=== PATIENT | male | born 1950 | race Caucasian/White ===

== ENCOUNTER → 2021-07-15 10:29 | Outpatient (CLI) | payer MEDICARE, OTHER, SELFPAY | PROVIDERS: PCP Family Medicine; Visit Provider Nurse Practitioner | DX: Z20.822 Contact with and (suspected) exposure to COVID-19 (principal); U07.1 COVID-19 | CPT/HCPCS: C9803; U0003; U0005 ==

== ENCOUNTER 2021-07-20 13:55 | Inpatient (IN) | payer MEDICARE, OTHER, SELFPAY ==
[2021-07-20] VITALS (8 sets, daily range): BP systolic 99–195; BP diastolic 62–114; PULSE 71–78; RESP 20; TEMP 36.4; O2SAT 90–94; BMI 33.3
--- NOTE | 2021-07-20 14:29 | XR_ITS ---
PROCEDURE: XR CHEST PORTABLE CLINICAL HISTORY: covid positive, increased SOA COMPARISON: No exams were available for comparison FINDINGS: The cardiomediastinal silhouette and pulmonary vascularity are within normal limits. The lungs are clear without infiltrates, suspicious nodules, or pleural effusions. No acute bony abnormalities. IMPRESSION: No acute findings. Dictated by: Stew Severino MD 07/20/2021 15:02 Stew Severino MD in [facility] 07/20/2021 15:02
[2021-07-20 14:44] LABS: Chloride 100 mmol/L (98-107); Potassium 4.6 mmoL/L (3.5-5.1); Sodium 139 mmol/L (136-145)
[2021-07-20 14:45] LABS: Basophils # 0.3 K/mm3 (0-0.2); Basophils % 4.4 % (0.1-2.0); Eosinophils % 0.2 % (0.1-12.0); Lymphocytes # 1.4 K/mm3 (0.7-4.5); Lymphocytes % 21.9 % (10-50); Mean Corpuscular Hemoglobin 30.2 pg (27.0-31.2); Mean Corpuscular Volume 91.6 fl (80-94); Mean Platelet Volume 9.9 fl (7.4-10.4); Monocytes # 0.9 K/mm3 (0.1-1.0); Monocytes % 13.8 % (1.7-9.3); Neutrophils % 64.1 % (37.0-80.0); Platelet Count 177 K/mm3 (142-424); Red Cell Distribution Width 14.9 % (11.5-17.5); White Blood Count 6.3 K/mm3 (4.8-10.8)
[2021-07-20 14:47] LABS: Alanine Aminotransferase 94 U/L (12-78); Albumin Level 4.1 g/dl (3.5-5.0); Albumin/Globulin Ratio 1.2 (1.1-1.8); Alkaline Phosphatase 126 U/L (38-126); Anion Gap 19.6 mEq/L (5-15); Aspartate Amino Transferase 76 U/L (17-59); Blood Urea Nitrogen 52 mg/dl (9-20); Carbon Dioxide 24 mmol/L (22.0-30.0); Creatinine Clearance Estimated 58 mL/min (50-200); Estimated Glomerular Filt Rate 35 ml/min (>60); GFR (African American) 42 ML/MIN (>60); Globulin 3.4 g/dL (1.3-3.2); Glucose 158 mg/dl (74-100); Total Protein,Serum 7.5 g/dl (6.3-8.2)
--- NOTE | 2021-07-20 14:49 | PC.NURSE ---
critical results called, aware, wants redraw at this time
[2021-07-20 14:51] LABS: Hematocrit 61.4 % (42.0-52.0)
[2021-07-20 14:59] LABS: Troponin I 0.04 ng/ml (0.00-0.034)
--- NOTE | 2021-07-20 15:22 | HMH.EDGENADL ---
ED Disposition Clinical Impression: COVID-19, KYM (acute kidney injury), Acute respiratory failure with hypoxia, NSTEMI (non-ST elevated myocardial infarction) Disposition: Admitted as Observation Condition on Discharge: Good Time of Disposition: 18:01 - Critical Care Critical Care Time: No Attestation: On 07/20/21, the high probability of a clinically significant, sudden or life threatening deterioration of the following system(s) required my full and direct attention, intervention and personal management. The time I documented below is in addition to time spent performing reported procedures but includes the following listed in this critical care notation. Medical Decision Making - Medical Records Medical records reviewed: Yes: I reviewed the patient's medical records. - Reese Inquiry Pt receiving controlled substance: No Vital Signs: 07/20/21 13:55 07/20/21 15:30 Temperature 97.6 F Temperature Source Oral Pulse Rate 78 Pulse Rate [Right Radial] 74 Respiratory Rate 20 Blood Pressure 137/114 H Blood Pressure [Left Arm] 99/68 L Blood Pressure Mean 121 Blood Pressure Mean [Left Arm] 78 Blood Pressure Source [Left Arm] Automatic Cuff Blood Pressure Position [Left Arm] Sitting 02 Sat by Pulse Oximetry 90 L 91 L Oxygen Delivery Method Room Air - Lab Data Lab results reviewed: Yes: I reviewed the patient's lab results. Lab Results 07/20/21 14:18: WBC 6.3, RBC 6.70 H, Hgb 19.9 H, Hct 61.4 H*, MCV 91.6, MCH 30.2, MCHC 33.0, RDW 14.9, Plt Count 177, MPV 9.9, Neut % (Auto) 64.1, Lymph % (Auto) 21.9, [place] % (Auto) 13.8 H, Eos % (Auto) 0.2, Baso % (Auto) 4.4 H, Neut # (Auto) 4.0, Lymph # (Auto) 1.4, [place] # (Auto) 0.9, Eos # (Auto) 0.0, Baso # (Auto) 0.3 H 07/20/21 15:03: Sodium 139, Potassium 4.6, Chloride 100, Carbon Dioxide 24, Anion Gap 19.6 H, BUN 52 H, Creatinine 1.90 H, Estimated Creat Clear 58, Estimated GFR 35 L, Est GFR ( Amer) 42 L, Glucose 158 H, Calcium 9.0, Total Bilirubin 1.0, AST 76 H, ALT 94 H, Alkaline Phosphatase 126, Troponin I 0.04 H, Total Protein 7.5, Albumin 4.1, Globulin 3.4 H, Albumin/Globulin Ratio 1.2 07/20/21 16:05: Hgb 19.0 H, Hct 57.3 H Result diagrams: 07/20/21 16:05 07/20/21 15:03 Orders (Tests/Meds): ED MEDICATIONS Discontinued Medications Generic Name Dose Route Start Last Admin Trade Name Freq PRN Reason Stop Dose Admin Sodium Chloride 1,000 mls @ 999 mls/hr 07/20/21 15:15 07/20/21 15:27 Sod Chlor 0.9% 1000ml Bag IV 07/20/21 16:15 999 mls/hr .Q1H1M MOMO Administration ORDERS Category Date Time Status Troponin I Q3H Lab 07/20/21 17:25 Received Troponin I Q3H Lab 07/20/21 20:30 Ordered - Radiology Data #1 Image(s): Chest Image Reviewed: Yes I reviewed the patient's radiology results Preliminary Findings: Normal/NAD - ECG Data Tracing #1 I reviewed this ECG and interpreted as documented below: Normal sinus rhythm, 79 bpm, no ST elevation or depression, QT 412. No ectopy. ECG initial impression date: 07/20/21 ECG initial impression time: 16:17 Medical Decision Narrative: 71yo M with known Covid positive status evaluated emergency department secondary to malaise and not feeling well. On initial evaluation the patient is mildly hypoxic and now requiring 2 L nasal cannula. Patient's physical exam is otherwise unremarkable. EKG is benign as reviewed above. Chest x-ray shows no acute findings. Laboratory studies reveal a creatinine of 1.9 with no previous for comparison. Patient also has a troponin of 0.04. Repeat troponin is 0.03. Patient received a liter of IV fluids. Case discussed with Dr. Oviedo who agrees to admit the patient for further observation. General Adult HPI - General Chief complaint: Shortness of Breath/Dyspnea Stated complaint: covid positive, soa Time Seen by Provider: 07/20/21 15:22 Mode of Arrival: Wheelchair Limitations: No Limitations Description of Symptoms (Recalled from ER Triage
[2021-07-20 15:42] LABS: Hemoglobin 19.9 g/dL (14.1-18.0)
--- NOTE | 2021-07-20 16:17 | ECG_ITS ---
APPROVED REPORT Exam: Resting ECG HR:79 bpm ECG Measurements Heart Rate 79 AXES ND 174 P 57 QRSd 94 QRS -43 QT 412 T 74 QTc 472 Conclusion Normal sinus rhythm Left axis deviation Prolonged QT Abnormal ECG Electronically signed by : John Sarah MD 07/21/2021 17:35:11
[2021-07-20 16:35] LABS: Hematocrit 57.3 % (42.0-52.0)
--- NOTE | 2021-07-20 17:39 | PC.NURSE ---
speaking to Dr Oviedo
--- NOTE | 2021-07-20 17:47 | PC.NURSE ---
Speaking to MD about admission
[2021-07-20 17:58] LABS: Troponin I 0.03 ng/ml (0.00-0.034)
[2021-07-20 19:20] LABS: C-Reactive Protein 46.2 mg/L (0-4)
[2021-07-20 19:52] LABS: Ferritin 220 ng/ml (17.9-464)
--- NOTE | 2021-07-20 20:36 | PC.NURSE ---
report called to maryse bowman on second floor at this time.
--- NOTE | 2021-07-20 20:36 | PC.NURSE ---
tower loader operator paging dr. mcknight or manufacturing operations manager doctor
--- NOTE | 2021-07-20 20:39 | PC.NURSE ---
JOHN TOPETE speaking with Dr. Jerry who is cushion worker for Dr. Nava
--- NOTE | 2021-07-20 20:44 | PC.NURSE ---
PT ARRIVED TO FLOOR VIA W/C FROM ED W/STAFF AT 2044
[2021-07-20 20:54] LABS: Troponin I 0.03 ng/ml (0.00-0.034)
[2021-07-21 00:01] VITALS: BMI 32.3
[2021-07-21 02:12] VITALS: PULSE 80
[2021-07-21 04:00] VITALS: BP 147/69; PULSE 70; PULSE 74; RESP 28; TEMP 36.6; O2SAT 92
--- NOTE | 2021-07-21 04:00 | PC.NURSE ---
Pt is A/O x4. Pt has been very pleasant this shift. Pt is wearing 2L NC with O2 stats >90%. Pt reports to feel SOA when ambulating in his room to the bathroom. Pt has a 20G in the right wrist with LR infusing at 125ml/hr. VSS, call light within reach.
[2021-07-21 05:51] VITALS: BMI 32.3
[2021-07-21 07:08] LABS: Basophils # 0.1 K/mm3 (0-0.2); Basophils % 1.1 % (0.1-2.0); Eosinophils % 0.5 % (0.1-12.0); Hematocrit 55.8 % (42.0-52.0); Lymphocytes # 1.4 K/mm3 (0.7-4.5); Lymphocytes % 19.7 % (10-50); Mean Corpuscular HGB Conc 32.6 g/dL (31.8-35.4); Mean Corpuscular Hemoglobin 29.7 pg (27.0-31.2); Mean Corpuscular Volume 91.1 fl (80-94); Mean Platelet Volume 9.6 fl (7.4-10.4); Monocytes # 0.7 K/mm3 (0.1-1.0); Monocytes % 10.1 % (1.7-9.3); Neutrophils % 68.6 % (37.0-80.0); Platelet Count 146 K/mm3 (142-424); Red Blood Count 6.12 M/mm3 (4.60-6.20); Red Cell Distribution Width 14.7 % (11.5-17.5); White Blood Count 7.3 K/mm3 (4.8-10.8)
[2021-07-21 07:14] LABS: Alanine Aminotransferase 67 U/L (12-78); Albumin Level 3.5 g/dl (3.5-5.0); Albumin/Globulin Ratio 1.1 (1.1-1.8); Alkaline Phosphatase 103 U/L (38-126); Anion Gap 14.5 mEq/L (5-15); Aspartate Amino Transferase 59 U/L (17-59); Bilirubin,Total 0.8 mg/dl (0.2-1.3); Blood Urea Nitrogen 50 mg/dl (9-20); Calcium 8.1 mg/dl (8.4-10.2); Carbon Dioxide 23 mmol/L (22.0-30.0); Chloride 104 mmol/L (98-107); Creatinine Clearance Estimated 71 mL/min (50-200); Estimated Glomerular Filt Rate 46 ml/min (>60); GFR (African American) 56 ML/MIN (>60); Globulin 3.1 g/dL (1.3-3.2); Glucose 89 mg/dl (74-100); Potassium 4.5 mmoL/L (3.5-5.1); Sodium 137 mmol/L (136-145); Total Protein,Serum 6.6 g/dl (6.3-8.2)
[2021-07-21 07:26] LABS: Hemoglobin 18.2 g/dL (14.1-18.0)
--- NOTE | 2021-07-21 07:55 | HMH.PHAINT ---
VERIFIED HOME MEDICATION LIST USING LIST FROM [facility]
[2021-07-21 08:00] VITALS: BP 117/73; PULSE 60; PULSE 78; RESP 19; TEMP 36.9; O2SAT 92
--- NOTE | 2021-07-21 08:03 | HMH.PHAVTE ---
[facility] Pharmacy VTE Monitoring - Patient Demographics Admission date: 07/20/21 Report Date: 07/21/21 Time: 08:03 Allergies/Adverse Reactions: Patient Allergies No Known Allergies Allergy (Verified 02/10/19 11:26) Height: 1.88 m Weight: 114.39 kg Patient Problems: Current Active Problems COVID-19 (Acute) KYM (acute kidney injury) (Acute) Acute respiratory failure with hypoxia (Acute) NSTEMI (non-ST elevated myocardial infarction) (Acute) - VTE Risk Labs: VTE Related Lab Results Hgb 18.2 g/dL (14.1-18.0) H 07/21/21 06:18 Hct 55.8 % (42.0-52.0) H 07/21/21 06:18 Plt Count 146 K/mm3 (142-424) 07/21/21 06:18 BUN 50 mg/dl (9-20) H 07/21/21 06:18 Creatinine 1.50 mg/dl (0.66-1.25) H D 07/21/21 06:18 Estimated Creat Clear 71 mL/min (50-200) 07/21/21 06:18 Was VTE Risk Assessment Performed: Yes VTE Score: 2 VTE Risk Level: Very Low Risk - Prophylaxis VTE Prophylaxis Ordered?: Yes Types of VTE Prophylaxis: IPCS Thigh High, Pharmacological Location of Applied Device: Bilateral Lower Extremeties Pharmacologic Type: Heparin
--- NOTE | 2021-07-21 08:16 | CA_ITS ---
APPROVED REPORT EXAM: Comprehensive 2D, Doppler, and color-flow Echocardiogram Stem Shaper: Yolis Jacobo RT(R) Ht: 6 ft 2 in Wt: 252lbs BSA: 2.40 BP: 137/114 mmHg Indications: COVID, NSTEMI, GERD, smoker, HTN, DM, SOB, hyperlipidemia, elevated troponins 2D Dimensions LVOT 2.09 cm (M/F) 1.5-2.5 M-Mode Dimensions RVDd 3.13 cm (0.9-2.6) LA Diam 3.20 cm (1.9-4.0) LVDd 5.09 cm (3.5-5.7) Ao Diam 2.45 cm (2.0-3.7) LVDs 4.25 cm (3.5-5.7) IVSd 1.36 cm (0.6-1.1) PWd 0.98 cm (0.6-1.1) EF (Teich) 34.40% FS 16.50% EDV (Teich) 123.20 mL ESV (Teich) 80.80 mL Left Ventricle Technically difficult study because of the patient factors and poor acoustic windows. Left atrium is mildly enlarged, left ventricle is normal size, mild concentric left ventricular hypertrophy, visually estimated ejection fraction 55% with no regional wall motion abnormality, diastolic parameters are inconclusive. Right Ventricle Right atrium and right ventricle are qualitatively mildly enlarged with normal contractility. Aortic Valve Aortic valve is minimally thickened and fibrosed, there is no aortic stenosis or aortic insufficiency. Mitral Valve Mitral valve grossly normal, there is mild mitral regurgitation. Tricuspid Valve Tricuspid grossly normal, there is mild tricuspid regurgitation, tricuspid regurgitation jet velocity is inadequate for calculation of the right ventricular systolic pressure. Pulmonic Valve Pulmonic valve is poorly visualized. Great Vessels Aortic root is normal size. Pericardium No significant pericardial effusion noted. Conclusion 1. Technically difficult study because of the patient factors and poor acoustic windows. 2. Mild biatrial enlargement, normal left ventricular size, mild concentric left ventricular hypertrophy, visually estimated ejection fraction 55% with no regional wall motion abnormality, diastolic parameters are inconclusive in the study. 3. Thickened and calcified aortic valve without aortic stenosis or aortic insufficiency. 4. Mild mitral and tricuspid regurgitation. 5. No significant pericardial effusion noted. Electronically signed by : Sammy Graham MD 07/21/2021 19:11:23
--- NOTE | 2021-07-21 09:33 | HMH.HP ---
*Admission Date: 07/20/21 <Candi Laurent - 07/21/21 10:07> *Chief complaint: Shortness of breath <Candi Laurent - 07/21/21 10:07> *History of present illness: Mr. Frazier is a 71-year-old male patient with a history of GERD, hyperlipidemia, hypertension, COPD, tobacco use disorder, hearing loss, and type 2 diabetes mellitus who presented yesterday p.m. to [facility] with progressive shortness of breath and a cough. He states he was at [place] with his family and an in-law family member was positive with Covid. The entire family became positive with Covid. He states neither he nor any of family members have received the Covid vaccine. He had a telehealth conference with Christen Wilson APRN at [facility] on 07/14/2021 and reported testing positive with a home test. Test was repeated at [facility] and again was positive. He was started on albuterol inhaler, Zithromax, and the Covid medicines. He and his received the monoclonal antibody infusion 2 days ago. Patient did call the office again requesting oxygen at home. He states he was using some family members oxygen and he felt better. He was instructed at that time to go to the emergency room for evaluation of his respiratory status which he did. He also describes having a diarrhea for the past 3 days and has been unable to eat. With evaluation in the emergency room he was found to be in acute renal failure. He received a liter of IV fluids. Initial Troponin I was slightly elevated with repeat x2 normal. .O2 sats were 90% On room air . Chest x-ray showed no acute findings. Patient states he feels better this morning. O2 sats have been 92% on room air. During this exam patient requests that his oxygen be placed back on. He denies chest pain. He describes a frequent nonproductive cough. He continues to have diarrhea. He is voiding QS. He is able to ambulate in the room without difficulty. <Candi Laurent - 07/21/21 10:07> [facility] History Medical History: Reports:: Cancer (Skin cancer), Chronic Obstructive Pulmonary Disease (COPD), Diabetes Mellitus Type 2, Gastroesophageal Reflux Disease(GERD), Heart Murmur (Mitral valve prolapse), Hyperlipidemia, Hypertension Denies:: Diabetes Mellitus Type 1, MRSA <Candi Laurent 07/21/21 10:07> *Have you ever received a pneumonia vaccine?: No <Candi Laurent 07/21/21 10:07> *Have you received a flu vaccine this season?: No <Candi Laurent 07/21/21 10:07> Other Medical History: Reports: Arthritis <Candi Laurent 07/21/21 10:07> Other Surgeries: Yes: Cardiac Catheterization, Hernia Repair <AnastasiiaCandi 07/21/21 10:07> Amputation: No <AnastasiiaCandi 07/21/21 10:07> Fractures: No <AnastasiiaCandi 07/21/21 10:07> - *Social History Last grade of school completed: High school graduate <AnastasiiaCnadi 07/21/21 10:07> Smoking Status: Current every day smoker <AnastasiiaCandi 07/21/21 10:07> Tobacco Type: cigarettes <LaurentCandi 07/21/21 10:07> # Packs/Day (cigarettes): 1 <Candi Laurent 07/21/21 10:07> Alcohol Intake: never <AnastasiiaCandi 07/21/21 10:07> Alcohol Intake Frequency:: 0-2 drinks per day <LaurentCandi 07/21/21 10:07> Substance Use Type: denies use <AnastasiiaCandi 07/21/21 10:07> *Occupational Status:: retired <LaurentCandi 07/21/21 10:07> Housing: house <LaurentCandi 07/21/21 10:07> Household Members: spouse, family <LaurentCandi 07/21/21 10:07> *Travel in the last 8 weeks: Inside the [place] <AnastasiiaCandi 07/21/21 10:07> Family Hx:: Cancer <AnastasiiaCandi 07/21/21 10:07> Review of Systems - Constitutional Reports fever(s), Reports lack of energy, Denies headache(s) <Candi Laurent 07/21/21 10:07> - Eyes Reports other (Wears glasses), Denies change in vision <Candi Laurent - 07/21/21 10:07> - ENT Reports abnormal hearing, Denies dizziness, Denies ear pain, Denies headache(s), Denies sore throat <Candi Laurent - 07/21/21
--- NOTE | 2021-07-21 11:46 | PC.NURSE ---
RESPIRATORY CARE: SPUTUM SAMPLE SENT TO LAB AT THIS TIME
[2021-07-21 12:00] VITALS: BP 133/85; PULSE 50; PULSE 53; RESP 20; TEMP 36.7; O2SAT 97
[2021-07-21 16:00] VITALS: BP 99/60; PULSE 78; PULSE 80; RESP 20; TEMP 36.8; O2SAT 95
[2021-07-21 16:15] LABS: POC Glucose,Bedside 137 (70-110)
[2021-07-21 16:15] LABS: POC Glucose,Bedside 98 (70-110)
[2021-07-21 20:00] VITALS: BP 134/73; PULSE 66; PULSE 70; RESP 18; TEMP 36.8; O2SAT 94
--- NOTE | 2021-07-21 20:16 | PC.NURSE ---
Pt alert and able to make needs known. Remains on 2 L. VSS. CB in reach
[2021-07-21 20:31] LABS: POC Glucose,Bedside 106 (70-110)
[2021-07-22] VITALS (10 sets, daily range): BP systolic 107–156; BP diastolic 58–88; PULSE 57–70; RESP 20–24; TEMP 36.6–36.9; O2SAT 92–96; BMI 31.6
--- NOTE | 2021-07-22 03:56 | PC.NURSE ---
A&OX4. TOLERATING 2LNC WELL. PT HAS HAD NO C/O THUS FAR THIS SHIFT. VSS WILL CONTINUE TO MONITOR.
[2021-07-22 05:39] LABS: POC Glucose,Bedside 90 (70-110)
--- NOTE | 2021-07-22 06:56 | PC.NURSE ---
ASSIGNMENT ACCEPTED UNDER DURESS.
[2021-07-22 07:10] LABS: Alanine Aminotransferase 59 U/L (12-78); Albumin Level 3.9 g/dl (3.5-5.0); Albumin/Globulin Ratio 1.2 (1.1-1.8); Alkaline Phosphatase 114 U/L (38-126); Anion Gap 15.6 mEq/L (5-15); Aspartate Amino Transferase 52 U/L (17-59); Bilirubin,Total 0.9 mg/dl (0.2-1.3); Blood Urea Nitrogen 45 mg/dl (9-20); Calcium 8.5 mg/dl (8.4-10.2); Carbon Dioxide 25 mmol/L (22.0-30.0); Chloride 104 mmol/L (98-107); Creatinine Clearance Estimated 70 mL/min (50-200); Estimated Glomerular Filt Rate 46 ml/min (>60); GFR (African American) 56 ML/MIN (>60); Globulin 3.3 g/dL (1.3-3.2); Glucose 98 mg/dl (74-100); Potassium 4.6 mmoL/L (3.5-5.1); Sodium 140 mmol/L (136-145); Total Protein,Serum 7.2 g/dl (6.3-8.2)
--- NOTE | 2021-07-22 08:18 | XR_ITS ---
PROCEDURE: XR CHEST PORTABLE CLINICAL HISTORY: covid COMPARISON: CR XR CHEST PORTABLE from 07/20/2021 FINDINGS: The cardiomediastinal silhouette and pulmonary vascularity are within normal limits. The lungs are clear without infiltrates, suspicious nodules, or pleural effusions. No acute bony abnormalities. IMPRESSION: No acute findings. Dictated by: Stew Severino MD 07/22/2021 12:22 Stew Severino MD in OV 07/22/2021 12:22
--- NOTE | 2021-07-22 08:19 | HMH.ACPN2 ---
<Deloris Augustine - Last Filed: 07/22/21 08:19> Internal Medicine - PN: Subj *Date: 07/22/21 *Time: 08:19 Interval history: Patient is feeling better today. He is still wheezing and coughing up sputum, but states her shortness of breath has improved slightly. He denies any chest pain. He states he slept better last night and was able to eat this morning. Exam Vital signs and Labs for Last 24 Hours: Temp Pulse Resp BP Pulse Ox 97.9 F 62 20 155/79 H 92 L 07/22/21 08:00 07/22/21 08:00 07/22/21 08:00 07/22/21 08:00 07/22/21 08:00 Laboratory Results - last 24 hr 07/21/21 12:15: POC Glucose 98 07/21/21 15:52: POC Glucose 137 H 07/21/21 20:17: POC Glucose 106 07/22/21 05:10: POC Glucose 90 07/22/21 06:30: Sodium 140, Potassium 4.6, Chloride 104, Carbon Dioxide 25, Anion Gap 15.6 H, BUN 45 H, Creatinine 1.50 H, Estimated Creat Clear 70, Estimated GFR 46 L, Est GFR ( Amer) 56 L, Glucose 98, Calcium 8.5, Total Bilirubin 0.9, AST 52, ALT 59, Alkaline Phosphatase 114, Total Protein 7.2, Albumin 3.9 D, Globulin 3.3 H, Albumin/Globulin Ratio 1.2 I & O for Last 24 hours: Intake & Output 07/19/21 07/20/21 07/21/21 07/22/21 11:59 11:59 11:59 11:59 Intake Total 360 / 360 Output Total 850 / 850 500 / 500 Balance -850 / -850 -140 / -140 Weight 252 lb 3 oz 247 lb Microbiology Reports for the Last 24 Hours: Microbiology 07/20/21 11:40 Sputum - Expectorated Sputum Gram Stain - Final - Constitutional no acute distress - *Routine Respiratory Exam Present: decreased breath sounds, rhonchi, wheezes - *Routine Cardiovascular Exam Present: RRR - *Routine Abdominal Exam Present: soft, normoactive bowel sounds. Absent: tenderness - *Routine Extremities Exam Absent: cyanosis, clubbing, edema - *Routine Skin Exam Present: warm. Absent: rash - *Routine Neurological Exam Present: alert, oriented X3 Assessment and Plan (1) COVID-19 Status: Acute Category: Medical Code(s): U07.1 - COVID-19 (2) Acute respiratory failure with hypoxia Status: Acute Category: Medical Code(s): J96.01 - Acute respiratory failure with hypoxia (3) KYM (acute kidney injury) Status: Acute Category: Medical Code(s): N17.9 - Acute kidney failure, unspecified (4) Hypertension Status: Chronic Category: Medical Code(s): I10 - Essential (primary) hypertension (5) COPD (chronic obstructive pulmonary disease) Status: Chronic Category: Medical Code(s): J44.9 - Chronic obstructive pulmonary disease, unspecified (6) Tobacco use disorder Status: Chronic Category: Medical Code(s): F17.200 - Nicotine dependence, unspecified, uncomplicated (7) Hyperlipidemia Status: Chronic Category: Medical Code(s): E78.5 - Hyperlipidemia, unspecified (8) GERD (gastroesophageal reflux disease) Status: Chronic Category: Medical Code(s): K21.9 - Gastro-esophageal reflux disease without esophagitis (9) Type 2 diabetes mellitus Status: Chronic Category: Medical Code(s): E11.9 - Type 2 diabetes mellitus without complications (10) Cardiac enzymes elevated Status: Acute Category: Medical Code(s): R74.8 - Abnormal levels of other serum enzymes - Assessment and plan all Dx Assessment and Plan for all problems:: We will repeat a chest x-ray today. Will discuss further care with Dr. Nava. <Mario Alberto Nava - Last Filed: 07/22/21 08:42> Internal Medicine - PN: Subj *Date: 07/22/21 *Time: 08:41 Exam Vital signs and Labs for Last 24 Hours: Temp Pulse Resp BP Pulse Ox 97.9 F 62 20 155/79 H 92 L 07/22/21 08:00 07/22/21 08:00 07/22/21 08:00 07/22/21 08:00 07/22/21 08:00 Laboratory Results - last 24 hr 07/21/21 12:15: POC Glucose 98 07/21/21 15:52: POC Glucose 137 H 07/21/21 20:17: POC Glucose 106 07/22/21 05:10: POC Glucose 90 07/22/21 06:30: Sodium 140, Potassium 4.6, Chloride 104, Carbon Dioxide 25, Anion Gap 15.6 H, BUN 45 H
[2021-07-22 13:01] LABS: POC Glucose,Bedside 111 (70-110)
--- NOTE | 2021-07-22 15:45 | PC.NURSE ---
PT IS RESTING IN BED. NO COMPLAINTS OF DISCOMFORT. PT HAS BEEN ON ROOM AIR SINCE 1000 THIS MORNING. O2 SATURATION HAS MAINTAINED 90-94% ON ROOM AIR. LUNG SOUNDS HAVE SCATTERED WHEEZES. ABDOMEN SOFT/NON TENDER WITH ACTIVE BOWEL SOUNDS. UMBILICAL HERNIA NOTED. PT HAS BEEN AMBULATING TO THE BATHROOM. VSS. WILL CONTINUE TO MONITOR.
[2021-07-22 17:07] LABS: POC Glucose,Bedside 129 (70-110)
[2021-07-22 20:30] LABS: POC Glucose,Bedside 200 (70-110)
[2021-07-23] VITALS: BP 145/68; PULSE 55; PULSE 61; RESP 20; TEMP 36.6; O2SAT 94
--- NOTE | 2021-07-23 03:09 | PC.NURSE ---
A&OX4. TOLERATING RA WELL AT BEGINNING OF SHIFT. ONCE PT FELL ASLEEP, HIS 02 SAT DECREASED TO 86%. PT PLACED ON 2LNC WHILE SLEEPING, TOLERATED WELL. PT HAS HAD NO C/O PAIN/SOA THUS FAR. PT IS VERY ADAMANT ABOUT GOING HOME WITH O2. VSS WILL CONTINUE TO MONITOR.
[2021-07-23 04:00] VITALS: BP 136/76; PULSE 60; RESP 21; TEMP 36.6; O2SAT 96
[2021-07-23 05:21] LABS: POC Glucose,Bedside 91 (70-110)
[2021-07-23 05:22] VITALS: BMI 31.4
[2021-07-23 06:20] VITALS: O2SAT 95
[2021-07-23 07:40] LABS: Alanine Aminotransferase 49 U/L (12-78); Albumin Level 3.8 g/dl (3.5-5.0); Albumin/Globulin Ratio 1.2 (1.1-1.8); Alkaline Phosphatase 109 U/L (38-126); Anion Gap 14.5 mEq/L (5-15); Aspartate Amino Transferase 49 U/L (17-59); Bilirubin,Total 0.9 mg/dl (0.2-1.3); Blood Urea Nitrogen 41 mg/dl (9-20); Calcium 8.5 mg/dl (8.4-10.2); Carbon Dioxide 26 mmol/L (22.0-30.0); Chloride 104 mmol/L (98-107); Creatinine Clearance Estimated 74 mL/min (50-200); Estimated Glomerular Filt Rate 50 ml/min (>60); GFR (African American) 60 ML/MIN (>60); Globulin 3.2 g/dL (1.3-3.2); Glucose 121 mg/dl (74-100); Potassium 4.5 mmoL/L (3.5-5.1); Sodium 140 mmol/L (136-145)
[2021-07-23 08:00] VITALS: BP 121/76; PULSE 52; PULSE 54; RESP 18; TEMP 36.7; O2SAT 93; O2SAT 95
--- NOTE | 2021-07-23 08:25 | HMH.ACPN2 ---
<Deloris Augustine - Last Filed: 07/23/21 08:25> Internal Medicine - PN: Subj *Date: 07/23/21 *Time: 08:25 Interval history: Patient is feeling better today. Less wheezing. Denies any pain. Is anxious to go home. Slept better and ate most of his breakfast this am. Exam Vital signs and Labs for Last 24 Hours: Temp Pulse Resp BP Pulse Ox 97.9 F 60 21 136/76 95 07/23/21 04:00 07/23/21 04:00 07/23/21 04:00 07/23/21 04:00 07/23/21 06:20 Laboratory Results - last 24 hr 07/22/21 12:31: POC Glucose 111 H 07/22/21 16:53: POC Glucose 129 H 07/22/21 20:15: POC Glucose 200 H 07/23/21 05:10: POC Glucose 91 07/23/21 06:15: Sodium 140, Potassium 4.5, Chloride 104, Carbon Dioxide 26, Anion Gap 14.5, BUN 41 H, Creatinine 1.40 H, Estimated Creat Clear 74, Estimated GFR 50 L, Est GFR ( Amer) 60, Glucose 121 H D, Calcium 8.5, Total Bilirubin 0.9, AST 49, ALT 49, Alkaline Phosphatase 109, Total Protein 7.0, Albumin 3.8, Globulin 3.2, Albumin/Globulin Ratio 1.2 I & O for Last 24 hours: Intake & Output 07/20/21 07/21/21 07/22/21 07/23/21 11:59 11:59 11:59 11:59 Intake Total 840 / 840 720 / 720 Output Total 850 / 850 500 / 500 Balance -850 / -850 340 / 340 720 / 720 Weight 252 lb 3 oz 247 lb 245 lb Microbiology Reports for the Last 24 Hours: Microbiology 07/20/21 11:40 Sputum - Expectorated Sputum Gram Stain - Final 07/20/21 11:40 Sputum - Expectorated Sputum Sputum Culture - Final Normal Respiratory Crissy - Constitutional no acute distress - *Routine Respiratory Exam Present: wheezes (less wheezing). Absent: crackles - *Routine Cardiovascular Exam Present: RRR - *Routine Abdominal Exam Present: soft, normoactive bowel sounds. Absent: tenderness - *Routine Extremities Exam Absent: cyanosis, clubbing, edema - *Routine Skin Exam Present: warm. Absent: rash - *Routine Neurological Exam Present: alert, oriented X3 Assessment and Plan (1) COVID-19 Status: Acute Category: Medical Code(s): U07.1 - COVID-19 (2) Acute respiratory failure with hypoxia Status: Acute Category: Medical Code(s): J96.01 - Acute respiratory failure with hypoxia (3) KYM (acute kidney injury) Status: Acute Category: Medical Code(s): N17.9 - Acute kidney failure, unspecified (4) Hypertension Status: Chronic Category: Medical Code(s): I10 - Essential (primary) hypertension (5) COPD (chronic obstructive pulmonary disease) Status: Chronic Category: Medical Code(s): J44.9 - Chronic obstructive pulmonary disease, unspecified (6) Tobacco use disorder Status: Chronic Category: Medical Code(s): F17.200 - Nicotine dependence, unspecified, uncomplicated (7) Hyperlipidemia Status: Chronic Category: Medical Code(s): E78.5 - Hyperlipidemia, unspecified (8) GERD (gastroesophageal reflux disease) Status: Chronic Category: Medical Code(s): K21.9 - Gastro-esophageal reflux disease without esophagitis (9) Type 2 diabetes mellitus Status: Chronic Category: Medical Code(s): E11.9 - Type 2 diabetes mellitus without complications (10) Cardiac enzymes elevated Status: Acute Category: Medical Code(s): R74.8 - Abnormal levels of other serum enzymes - Assessment and plan all Dx Assessment and Plan for all problems:: Patient is much better today. Stable for discharge on oxygen. <Mario Alberto Nava - Last Filed: 07/23/21 13:55> Internal Medicine - PN: Subj *Date: 07/23/21 *Time: 13:54 Exam Vital signs and Labs for Last 24 Hours: Temp Pulse Resp BP Pulse Ox 98.1 F 54 L 18 121/76 95 07/23/21 08:00 07/23/21 08:00 07/23/21 08:00 07/23/21 08:00 07/23/21 08:00 Laboratory Results - last 24 hr 07/22/21 16:53: POC Glucose 129 H 07/22/21 20:15: POC Glucose 200 H 07/23/21 05:10: POC Glucose 91 07/23/21 06:15: Sodium 140, Potassium 4.5, Chloride 104, Carbon Dioxide 26, Anion Gap 14.5, BUN 4
--- NOTE | 2021-07-23 09:17 | SW/DCPLANNER ---
Addendum entered by Ana Romano 07/23/21 09:29: Nicole with [facility] has stated that order has been reviewed and portable is being delivered to [facility]. Original Note: Patient information/order has been faxed to [facility] for this patient to receive home O2/portable tank. Patient will discharge later today.
--- NOTE | 2021-07-28 21:47 | HMH.DCSUM ---
General - General Admission date:: 07/20/21 <Mario Alberto Nava - 09/06/21 13:35> 07/20/21 <Deloris Augustine - 07/28/21 21:58> Discharge date: 07/23/21 <DavideDeloris - 07/28/21 21:58> HPI HPI: Mr. Frazier is a 71-year-old male patient with a history of GERD, hyperlipidemia, hypertension, COPD, tobacco use disorder, hearing loss, and type 2 diabetes mellitus who presented yesterday p.m. to [facility] with progressive shortness of breath and a cough. He states he was at [place] with his family and an in-law family member was positive with Covid. The entire family became positive with Covid. He states neither he nor any of family members have received the Covid vaccine. He had a telehealth conference with Christen Wilson APRN at [facility] on 07/14/2021 and reported testing positive with a home test. Test was repeated at [facility] and again was positive. He was started on albuterol inhaler, Zithromax, and the Covid medicines. He and his received the monoclonal antibody infusion 2 days ago. Patient did call the office again requesting oxygen at home. He states he was using some family members oxygen and he felt better. He was instructed at that time to go to the emergency room for evaluation of his respiratory status which he did. He also describes having a diarrhea for the past 3 days and has been unable to eat. With evaluation in the emergency room he was found to be in acute renal failure. He received a liter of IV fluids. Initial Troponin I was slightly elevated with repeat x2 normal. .O2 sats were 90% On room air . Chest x-ray showed no acute findings. Patient states he feels better this morning. O2 sats have been 92% on room air. During this exam patient requests that his oxygen be placed back on. He denies chest pain. He describes a frequent nonproductive cough. He continues to have diarrhea. He is voiding QS. He is able to ambulate in the room without difficulty. <Deloris Augustine - 07/28/21 21:58> Hospital Course Hospital Course: The patient was started on Combivent as well as Covid protocol. He was started on blood pressure medication and sliding scale insulin. The patient stated he no longer wished to smoke. His cardiac enzymes were initially elevated but returned to normal. It was felt this was due to his acute illness. He did have an echo showing an EF of 55%. He had a repeat chest x-ray on 07/22/2021 which showed nothing acute. His shortness of breath and wheezing improved. He was able to began sleeping and eating. His diarrhea improved. By 07/23/2021 he was feeling better and wanted to go home. His sputum grew out normal respiratory martha. He was stable for discharge home on oxygen as he dropped to 86% while sleeping. He was able to maintain oxygen saturations in the low 90s on room air. He will follow up with a telehealth visit in 1 week. <Deloris Augustine - 07/28/21 21:58> Objective Vital signs: Temp Pulse Resp BP Pulse Ox 98.1 F 54 L 18 121/76 95 07/23/21 08:00 07/23/21 08:00 07/23/21 08:00 07/23/21 08:00 07/23/21 08:00 <ElijahMario Alberto Anurag - 09/06/21 13:35> Temp Pulse Resp BP Pulse Ox 98.1 F 54 L 18 121/76 95 07/23/21 08:00 07/23/21 08:00 07/23/21 08:00 07/23/21 08:00 07/23/21 08:00 <Deloris Augustine - 07/28/21 21:58> Narrative: - Constitutional no acute distress - *Routine Respiratory Exam Present: wheezes (less wheezing). Absent: crackles - *Routine Cardiovascular Exam Present: RRR - *Routine Abdominal Exam Present: soft, normoactive bowel sounds. Absent: tenderness - *Routine Extremities Exam Absent: cyanosis, clubbing, edema - *Routine Skin Exam Present: warm. Absent: rash - *Routine Neurological Exam Present: alert, oriented X3 <Deloris Augustine - 07/28/21 21:58> DS: Diagnosis - Discharge Diagnosis (1) COVID-19 Status: Acute (2) Acute respirat
== END 2021-07-23 10:45 | disposition home or self-care (01) | DRG 177 ==
LOC: ER 18:01 → 2ND 20:28
PROVIDERS: Admitting Provider Family Medicine; Emergency Provider Family Medicine; PCP Family Medicine; Visit Provider Family Medicine
DX: U07.1 COVID-19 (principal); J96.01 Acute respiratory failure with hypoxia; N17.9 Acute kidney failure, unspecified; J44.9 Chronic obstructive pulmonary disease, unspecified; E78.5 Hyperlipidemia, unspecified; K21.9 Gastro-esophageal reflux disease without esophagitis; E11.9 Type 2 diabetes mellitus without complications; I10 Essential (primary) hypertension; Z79.84 Long term (current) use of oral hypoglycemic drugs; R74.8 Abnormal levels of other serum enzymes; Z85.828 Personal history of other malignant neoplasm of skin; I34.1 Nonrheumatic mitral (valve) prolapse; M19.90 Unspecified osteoarthritis, unspecified site; F17.210 Nicotine dependence, cigarettes, uncomplicated
CPT/HCPCS: 36415; 71045; 80053; 82728; 82962; 84484; 85014; 85018; 85025; 86140; 87070; 87205; 93005; 93306; 94640; 96365; 99284

== ENCOUNTER 2022-01-19 03:23 | Emergency (ER) | payer MEDICARE, OTHER, SELFPAY ==
[2022-01-19 03:23] VITALS: BP 160/76; PULSE 64; RESP 22; TEMP 37.2; O2SAT 92; BMI 33.3
--- NOTE | 2022-01-19 03:28 | ECG_ITS ---
APPROVED REPORT Exam: Resting ECG HR:67 bpm ECG Measurements Heart Rate 67 AXES SC 188 P 65 QRSd 101 QRS 44 QT 415 T 73 QTc 431 Conclusion SINUS RHYTHM WITH SINUS ARRHYTHMIA NORMAL ECG UNCONFIRMED REPORT Electronically signed by : John Sarah MD 01/19/2022 16:33:07
[2022-01-19 03:33] VITALS: BMI 33.3
--- NOTE | 2022-01-19 03:33 | XR_ITS ---
PROCEDURE INFORMATION: Exam: XR Chest Exam date and time: 01/19/2022 4:57 AM Age: 71 years old Clinical indication: Shortness of breath; Additional info: SOA TECHNIQUE: Imaging protocol: XR of the chest. Views: 2 views. COMPARISON: CR XR CHEST PORTABLE 07/22/2021 8:27 AM FINDINGS: Lungs: Unremarkable. No consolidation. Pleural spaces: Unremarkable. No pleural effusion. No pneumothorax. Heart/Mediastinum: Unremarkable. No cardiomegaly. Bones/joints: Unremarkable. IMPRESSION: No acute findings.
--- NOTE | 2022-01-19 03:37 | CT_ITS ---
PROCEDURE INFORMATION: Exam: CT Abdomen And Pelvis With Contrast Exam date and time: 01/19/2022 4:57 AM Age: 71 years old Clinical indication: Abdominal pain TECHNIQUE: Imaging protocol: Computed tomography of the abdomen and pelvis with contrast. Radiation optimization: All CT scans at this facility use at least one of these dose optimization techniques: automated exposure control; mA and/or kV adjustment per patient size (includes targeted exams where dose is matched to clinical indication); or iterative reconstruction. Contrast material: ISOVUE; Contrast volume: 75 ml; Contrast route: IV; COMPARISON: CR XR CHEST PORTABLE 07/22/2021 8:27 AM FINDINGS: Lungs: 6 mm right lower lobe nodule. 10 mm left lower lobe subpleural nodule. Calcified left hilar granulomas. Liver: Calcified granulomas. Mild fatty liver. Gallbladder and bile ducts: Normal. No calcified stones. No ductal dilation. Pancreas: Normal. No ductal dilation. Spleen: Calcified granulomas. Adrenal glands: Normal. No mass. Kidneys and ureters: Nonobstructing left renal calculus. Stomach and bowel: Scattered colonic diverticula. Appendix: No evidence of appendicitis. Intraperitoneal space: Unremarkable. No free air. No significant fluid collection. Vasculature: Atheromatous vascular calcification. Lymph nodes: Unremarkable. No enlarged lymph nodes. Urinary bladder: Unremarkable as visualized. Reproductive: Prostatic calcification. Prior vasectomy. Bones/joints: Moderate-marked lower lumbar spondylosis with S-shaped scoliosis. Soft tissues: Fat containing left inguinal hernia. IMPRESSION: 1. No acute abdominal or pelvic visceral pathology. 2. Mild fatty liver. 3. Nonobstructing left renal calculus. 4. Other nonacute findings above.
[2022-01-19 03:40] VITALS: PULSE 61
[2022-01-19 03:49] LABS: Basophils # 0.2 K/mm3 (0-0.2); Basophils % 2.2 % (0.1-2.0); Eosinophils # 0.4 K/mm3 (0.0-0.4); Eosinophils % 4.1 % (0.1-12.0); Hematocrit 51.5 % (42.0-52.0); Hemoglobin 16.7 g/dL (14.1-18.0); Lymphocytes # 1.2 K/mm3 (0.7-4.5); Lymphocytes % 12.3 % (10-50); Mean Corpuscular HGB Conc 32.5 g/dL (31.8-35.4); Mean Corpuscular Hemoglobin 29.9 pg (27.0-31.2); Mean Platelet Volume 9.3 fl (7.4-10.4); Monocytes # 0.8 K/mm3 (0.1-1.0); Monocytes % 8.3 % (1.7-9.3); Neutrophils # 7.3 K/mm3 (1.8-7.8); Neutrophils % 73.2 % (37.0-80.0); Platelet Count 217 K/mm3 (142-424); Red Blood Count 5.59 M/mm3 (4.60-6.20); Red Cell Distribution Width 14.3 % (11.5-17.5)
[2022-01-19 04:02] LABS: Alanine Aminotransferase 43 U/L (12-78); Albumin Level 4.1 g/dl (3.5-5.0); Albumin/Globulin Ratio 1.5 (1.1-1.8); Alkaline Phosphatase 125 U/L (38-126); Anion Gap 10.3 mEq/L (5-15); Aspartate Amino Transferase 46 U/L (17-59); Bilirubin,Total 0.7 mg/dl (0.2-1.3); Blood Urea Nitrogen 25 mg/dl (9-20); Calcium 8.3 mg/dl (8.4-10.2); Carbon Dioxide 29 mmol/L (22.0-30.0); Chloride 106 mmol/L (98-107); Creatinine Clearance Estimated 100 mL/min (50-200); Estimated Glomerular Filt Rate 66 ml/min (>60); GFR (African American) 79 ML/MIN (>60); Globulin 2.8 g/dL (1.3-3.2); Glucose 115 mg/dl (74-100); Lactic Acid 1.3 mmol/L (0.7-2.1); Potassium 4.3 mmoL/L (3.5-5.1); Sodium 141 mmol/L (136-145); Total Protein,Serum 6.9 g/dl (6.3-8.2)
[2022-01-19 04:07] LABS: C-Reactive Protein 6.3 mg/L (0-4)
[2022-01-19 04:20] LABS: Procalcitonin 0.128 ng/mL (0.0-2.0)
[2022-01-19 04:34] LABS: Coronavirus 19, PCR Not Detected (NotDetected); Erythrocyte Sedimentation Rate 20 mm/hr (0-20); Influenza A, PCR Detected (NotDetected); Influenza B, PCR Not Detected (NotDetected)
[2022-01-19 04:42] LABS: Troponin I < 0.01 ng/ml (0.00-0.034)
--- NOTE | 2022-01-19 06:47 | HMH.EDCP ---
ED Disposition Clinical Impression: Flu Disposition: Home, Self-Care Condition on Discharge: Good Instructions: DI for H1N1 Influenza -- Adult Additional Instructions: fluids and see pcp for follow up Prescriptions: Oseltamivir Phosphate [Tamiflu 75mg Capsule] 75 mg PO BID #10 cap Transmission Status: Pending to [facility]/pharmacy #[id number] Referrals: Mario Alberto Nava MD [Primary Care Provider] - - Critical Care Critical Care Time: No Attestation: On 01/19/22, the high probability of a clinically significant, sudden or life threatening deterioration of the following system(s) required my full and direct attention, intervention and personal management. The time I documented below is in addition to time spent performing reported procedures but includes the following listed in this critical care notation. Medical Decision Making - Medical Records Medical records reviewed: Yes: I reviewed the patient's medical records. - Reese Inquiry Pt receiving controlled substance: No Vital Signs: 01/19/22 03:23 01/19/22 03:40 Temperature 98.9 F Temperature Source Oral Pulse Rate 61 Pulse Rate [Left] 64 Respiratory Rate 22 Blood Pressure [Right Arm] 160/76 H Blood Pressure Mean [Right Arm] 104 02 Sat by Pulse Oximetry 92 L Oxygen Delivery Method Room Air - Lab Data Lab results reviewed: Yes: I reviewed the patient's lab results. Lab Results 01/19/22 03:30: WBC 10.0, RBC 5.59, Hgb 16.7, Hct 51.5, MCV 92.0, MCH 29.9, MCHC 32.5, RDW 14.3, Plt Count 217, MPV 9.3, Neut % (Auto) 73.2, Lymph % (Auto) 12.3, [place] % (Auto) 8.3, Eos % (Auto) 4.1, Baso % (Auto) 2.2 H, Neut # (Auto) 7.3, Lymph # (Auto) 1.2, [place] # (Auto) 0.8, Eos # (Auto) 0.4, Baso # (Auto) 0.2, ESR 20 01/19/22 03:30: Sodium 141, Potassium 4.3, Chloride 106, Carbon Dioxide 29, Anion Gap 10.3, BUN 25 H, Creatinine 1.10, Estimated Creat Clear 100, Estimated GFR 66, Est GFR ( Amer) 79, Glucose 115 H, Calcium 8.3 L, Total Bilirubin 0.7, AST 46, ALT 43, Alkaline Phosphatase 125, Troponin I < 0.01, C-Reactive Protein 6.3 H, Total Protein 6.9, Albumin 4.1, Globulin 2.8, Albumin/Globulin Ratio 1.5, Procalcitonin 0.128 01/19/22 03:30: Lactate 1.3 01/19/22 03:30: SARS-CoV-2 (PCR) Not detected, Influenza A Untype (PCR) Detected A, Influenza Type B (PCR) Not detected Result diagrams: 01/19/22 03:30 01/19/22 03:30 Orders (Tests/Meds): ED MEDICATIONS Generic Name Dose Route Start Last Admin Trade Name Freq PRN Reason Stop Dose Admin Sodium Chloride 1,000 mls @ 999 mls/hr 01/19/22 03:45 01/19/22 03:39 Sod Chlor 0.9% 1000ml Bag IV 01/19/22 04:45 999 mls/hr .Q1H1M MOMO Administration Sodium Chloride 8 ml 01/19/22 03:37 Sodium Chloride 0.9% 10ml Vial IV 02/18/22 03:36 NEEDED PRN dilute pepcid Discontinued Medications Generic Name Dose Route Start Last Admin Trade Name Freq PRN Reason Stop Dose Admin Albuterol/Ipratropium 3 ml 01/19/22 03:34 01/19/22 03:39 Ipratropium/Albuterol 3 Ml Neb IH 01/19/22 03:35 3 ml ONCE ONE Administration Aspirin 324 mg 01/19/22 03:37 01/19/22 03:40 Aspirin 81mg Chewable Tablet PO 01/19/22 03:38 324 mg ONCE ONE Administration Famotidine 20 mg 01/19/22 03:37 01/19/22 03:41 Famotidine 20mg/2ml Vial IV 01/19/22 03:38 20 mg ONCE ONE Administration Iopamidol 75 ml 01/19/22 05:12 01/19/22 05:15 Iopamidol-370 (76%);100ml Bottle IV 01/19/22 05:13 75 ml ONCE ONE Administration Ketorolac Tromethamine 30 mg 01/19/22 03:37 01/19/22 03:39 Ketorolac 30mg/Ml Vial IV 01/19/22 03:38 30 mg ONCE ONE Administration Methylprednisolone Sodium Succinate 125 mg 01/19/22 03:34 01/19/22 03:39 Methylprednisolone Sod Succ 125mg Vial IV 01/19/22 03:35 125 mg ONCE ONE Administration Metoclopramide HCl 10 mg 01/19/22 03:37 01/19/22 03:40 Metoclopramide Hcl 10mg/2ml Vial IVP 01/19/22 03:38 10 mg ONCE ONE Administration Ondansetron HCl
--- NOTE | 2022-01-19 06:51 | PC.NURSE ---
discussed issue with [facility] with radiology
[2022-01-19 07:34] LABS: Troponin I < 0.01 ng/ml (0.00-0.034)
[2022-01-19 07:39] VITALS: BP 142/71; PULSE 67; RESP 18; TEMP 37.2; O2SAT 94
== END 2022-01-19 07:43 | disposition home or self-care (01) ==
PROVIDERS: Emergency Provider Emergency Medicine; PCP Family Medicine
DX: J10.1 Influenza due to other identified influenza virus with other respiratory manifestations (principal); R07.9 Chest pain, unspecified
CPT/HCPCS: 71046; 74177; 80053; 83605; 84145; 84484; 85025; 85651; 86140; 87040; 93005; 96365; 96375; 99284; C9803; J2405; Q9967; U0003; U0005

== ENCOUNTER → 2022-06-08 06:40 | Outpatient (CLI) | payer MEDICARE, OTHER, SELFPAY ==
--- NOTE | 2022-06-08 07:13 | CT_ITS ---
FINAL REPORT CLINICAL HISTORY: H/O NICOTINE DEPENDENCE smoker, 1 ppd x 55 years. copd. no family hx FINDINGS: Low-Dose Chest CT CTDI vol (mGy): 2.90 DLP (mGy-cm): 108.38 Axial images were obtained from the lung apex to the mid abdomen by computed tomography. Low-dose protocol was utilized. FINDINGS: CHEST: There is no axillary adenopathy. There is no hilar or mediastinal adenopathy. The heart is proper size. There is no pericardial or pleural effusion. Limited images of the upper abdomen are unremarkable. Lung window images demonstrate mild changes of emphysema with mild scarring. A 6 mm nodule is seen in the right lower lobe on image 49. A 9 mm nodule is seen in the left lower lobe on image 55. There are several other less than 5 mm pulmonary nodules. IMPRESSION: Lung RADS category 4A. Recommend 3 month follow-up low-dose chest CT and/or PET-CT. Reviewed, Interpreted and Dictated by Arjun Jacinto III, MD Transcribed by Mirza Wright Authenticated and [facility]
--- NOTE | 2022-06-08 07:14 | US_ITS ---
FINAL REPORT CLINICAL HISTORY: AAA FINDINGS: Sonographic images were obtained of the abdominal aorta. The abdominal aorta measures up to 2.7 cm in greatest dimensions. The common iliac arteries are within normal limits. IMPRESSION: No evidence of abdominal aortic aneurysm. Reviewed, Interpreted and Dictated by Arjun Jacinto III, MD Transcribed by Mirza Wright Authenticated and [facility]
== END ==
PROVIDERS: PCP Family Medicine; Visit Provider Family Medicine
DX: Z87.891 Personal history of nicotine dependence (principal); Z12.2 Encounter for screening for malignant neoplasm of respiratory organs; Z13.6 Encounter for screening for cardiovascular disorders
CPT/HCPCS: 71271; 76705

== ENCOUNTER → 2022-12-01 12:37 | Outpatient (CLI) | payer MEDICARE, OTHER, SELFPAY ==
--- NOTE | 2022-12-01 12:42 | CT_ITS ---
FINAL REPORT TECHNIQUE: Axial CT images of the chest were obtained with contrast. Coronal reformatted images were also obtained. This study was performed with techniques to keep radiation doses as low as reasonably achievable, (ALARA). Individualized dose reduction techniques using automated exposure control or adjustment of mA and/or KV according to the patient's size were employed. 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 There is moderate plaque of the descending thoracic aorta. There is no evidence of mediastinal or hilar mass or adenopathy. No axillary mass or adenopathy is identified. On lung window images, mild atelectasis or scar is noted. There is mild emphysema. Right lower lobe nodule measuring 6 mm, previously was 6 mm. Left lower lobe nodule measuring 9 mm, previously was 9 mm. Other less than 5 mm nodules are stable. No new mass or nodule identified. Limited images of the upper abdomen reveal fatty infiltration of the liver. IMPRESSION: Stable nodules. Recommend additional follow-up chest CT in six months. 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 Reviewed, Interpreted and Dictated by Arjun Jacinto III, MD Transcribed by Lolita Amaro Authenticated and [facility]
== END ==
PROVIDERS: PCP Family Medicine; Visit Provider Family Medicine
DX: R91.8 Other nonspecific abnormal finding of lung field (principal)
CPT/HCPCS: 71260; Q9967

== ENCOUNTER 2025-06-21 06:51 | Outpatient (CLI) | payer MEDICARE, OTHER, SELFPAY ==
--- OUTSIDE RECORDS SUMMARY | 2025-06-21 06:54 | XMS_ITS | Clinical Summary ---
Author Organization [facility] Address [address] [place] [address] Phone Care Team Providers Care Health Science Instructor Name Role Phone Unavailable Primary Care Provider Unavailabl e Allergies No known active allergies Medications omeprazole (PRILOSEC) 40 mg Oral Capsule, Delayed Release(E.C.) Take by mouth daily. Active metFORMIN (GLUCOPHAGE) 500 mg Oral Tablet Take 500 mg by mouth 2 times daily. Active lisinopril (PRINIVIL;ZESTRI L) 20 mg Oral Tablet tablet Take by mouth daily. Active atorvastatin (LIPITOR) 40 mg Oral Tablet Take 40 mg by mouth daily. Active amLODIPine (NORVASC) 2.5 mg Oral Tablet Take by mouth daily. Active aspirin 81 mg Oral Tablet, Chewable Take by mouth daily. Active Social History Tobacco Use Types Packs/Day Years Used Date Smoking Tobacco: Every Day Cigarettes 1.5 57.6 Started: 10/31/1967 Smokeless Tobacco: Never Sex and Gender Information Value Date Recorded Sex Assigned at Not on file Legal Sex Male 7:57 PM EDT Gender Identity Not on file Sexual Orientation Not on file Obstetrics History Plan of Treatment Health Maintenance Due Date Last Done Comments Wellness Exam Medicare 1953 Hepatitis C Screening 1966 DTaP/TDaP/Td (1 - Tdap) 1967 Pneumococcal Vaccine 50+ (1 of 1 - PCV) 1998 Zoster (1 of 2) 1998 RSV or 60+ (1 - 1-d ose 75+ series) 2023 COVID-19 Vaccine (2023-2 5 season) 2024 Influenza Vaccine (#1) 2025 Hepatitis B Vaccine Aged Out No longe r eligible based on patient's age to complete this topic Meningococcal B Vaccine Aged Out No l onger eligible based on patient's age to complete this topic Insurance [employer] [facility] [employer] [facility]
--- NOTE | 2025-06-21 06:56 | CT_ITS ---
FINAL REPORT TECHNIQUE: Thin section axial images were obtained from the lung apices to the upper abdomen by computed tomography. Reformatted images were obtained and reviewed. This study was performed with techniques to keep radiation doses al low as reasonably achievable (ALARA). Individualized dose reduction techniques using automated exposure control or adjustment of mA and/or kV according to the patient's size were employed. CLINICAL HISTORY: SCREENING. SMOKER 1PPD FOR 50 YEARS. HX BASAL CELL SKIN CANCER. COMPARISON: 12/01/2022 FINDINGS: CHEST CT LOW DOSE 74-year-old male, current smoker, [id number] history. CTDI vol (mGy): 2.90 DLP (mGy-cm): 114.11 There is mild ectasia of the descending aorta, measuring 3.8 cm in diameter with mild mural thrombus. There is another focal area of ectasia in the mid descending aorta, also measuring 3.8 cm. There is no axillary adenopathy. There is no mediastinal or hilar mass or adenopathy. The heart is normal in size. There is no pericardial or pleural effusion. Lung window images demonstrate a 6 mm right lower lobe nodule best seen on image #54 of series 3, stable. There is also a left lower lobe nodule measuring 9 mm in size, also stable. There are a few other scattered less than 5 mm in size nodules, which are also unchanged from the prior exam. Limited images of the upper abdomen are unremarkable. IMPRESSION: Lung-RADS category 2S, the S designation for the ectasia of the descending thoracic aorta. Recommend 12 month follow up low dose chest CT. Reviewed, Interpreted and Dictated by Dennis Ureña MD Transcribed by Kay Oliveira Authenticated and [facility]
== END 2025-06-21 23:59 | disposition home or self-care (01) ==
LOC: RAD 06:52
PROVIDERS: PCP Family Medicine; Visit Provider Family Medicine
DX: I77.810 Thoracic aortic ectasia (principal); R91.8 Other nonspecific abnormal finding of lung field; Z12.2 Encounter for screening for malignant neoplasm of respiratory organs; Z87.891 Personal history of nicotine dependence
CPT/HCPCS: 71271